=== PATIENT | female | born 1960 | race Caucasian/White ===

== ENCOUNTER 2022-05-06 12:38 | Emergency (ER) | payer OTHER ==
[2022-05-06 13:04] VITALS: BP 127/84; PULSE 70; RESP 16; TEMP 97.7; BMI 21.6
[2022-05-06] MEDS ORDERED: KETOROLAC TROMETHAMINE 30 MG/1 ML VIAL ONE ×2 (14:20→17:03)
[2022-05-06] MEDS ORDERED: SODIUM CHLORIDE 0.9% 500 ML INFUS.BAG IV ONE (16:55)
[2022-05-06 17:28] LABS: BASO % 0.9 % (0-2.0); EOS % 3.2 % (0-4.5); HEMOGLOBIN 11.2 GM/dL (10.7-15.3); LYMPH % 48.7 % (8-40); MCH 28.5 pg (25.7-33.7); MCHC 33.1 g/dl (32.0-36.0); MEAN CELL VOLUME 86.2 fl (80-96); MONO % 10.4 % (3.8-10.2); NEUT % 36.8 % (42.8-82.8); PLATELET COUNT 208 10^3/uL (134-434); RBC 3.94 M/mm3 (3.60-5.2); RDW 14.3 % (11.6-15.6); WHITE BLOOD COUNT 4.5 K/mm3 (4.0-10.0)
[2022-05-06 17:38] LABS: CALCIUM 8.8 mg/dL (8.5-10.1)
[2022-05-06 17:39] LABS: ALBUMIN 3.4 g/dl (3.4-5.0); BLOOD UREA NITROGEN 10.8 mg/dL (7-18)
[2022-05-06 17:42] LABS: CREATININE 0.7 mg/dL (0.55-1.3)
[2022-05-06 17:43] LABS: BILIRUBIN,TOTAL 0.4 mg/dL (0.2-1)
[2022-05-06 17:44] LABS: TOT PROT 7.2 g/dl (6.4-8.2)
[2022-05-06 17:53] LABS: EPI CELLS 3 /uL (0-25.1); HYALINE CASTS 0 /uL (0-3.1); URINE APPEARANCE CLEAR; URINE BACTERIA 79 /uL (0-1359); URINE BILIRUBIN NEGATIVE (NEGATIVE); URINE COLOR YELLOW; URINE GLUCOSE (UA) NEGATIVE (NEGATIVE); URINE KETONE NEGATIVE (NEGATIVE); URINE LEUK ESTERASE NEGATIVE (NEGATIVE); URINE NITRITE NEGATIVE (NEGATIVE); URINE PROTEIN NEGATIVE (NEGATIVE); URINE RBC 11 /uL (0-23.9); URINE UROBILINOGEN 0.2 mg/dL (0.2-1.0); URINE WBC 2 /uL (0-25.8)
[2022-05-06] MEDS ORDERED: KETOROLAC TROMETHAMINE 30 MG/1 ML VIAL IM SCH (18:00)
== END 2022-05-06 19:33 | disposition home or self-care (01) ==
LOC: JER 12:38
PROC: 3E023GC Introduction of Other Therapeutic Substance into Muscle, Percutaneous Approach (ICD-10-PCS; principal; 2022-05-06)
DX: B34.9 Viral infection, unspecified (principal); M79.10 Myalgia, unspecified site
CPT/HCPCS: 0241U-QW; 36415; 71046-TC-FY; 80053; 81003; 85025; 99284-25

== ENCOUNTER 2022-06-05 13:47 | Emergency (ER) | payer OTHER ==
[2022-06-05 14:37] VITALS: BP 130/64; PULSE 71; RESP 20; TEMP 99.5; BMI 23.5
[2022-06-05] MEDS ORDERED: ACETAMINOPHEN 500 MG TABLET (FP) PO ONE (15:17)
[2022-06-05] MEDS ORDERED: IBUPROFEN 600 MG TABLET (FP) PO ONE ×2 (15:57→16:01)
[2022-06-05] MEDS ORDERED: ACETAMINOPHEN 500 MG TABLET (FP) ONE (16:01)
== END 2022-06-05 16:16 | disposition home or self-care (01) ==
LOC: JER 13:47
DX: U07.1 COVID-19 (principal)
CPT/HCPCS: 0241U-QW; 99283-25

== ENCOUNTER 2024-03-23 16:55 | Emergency (ER) | payer OTHER ==
[2024-03-23 17:28] VITALS: RESP 20; TEMP 98.1; BMI 24.7
[2024-03-23] MEDS ORDERED: ALBUTEROL SO4 2.5/IPRATROPIUM 0.5 INH SOL 3 ML VIAL.NEB. NEB ONE ×2 (18:38→20:21)
[2024-03-23] MEDS ORDERED: ACETAMINOPHEN 500 MG TABLET (FP) ONE (18:38)
[2024-03-23] MEDS: ALBUTEROL SO4 2.5/IPRATROPIUM 0.5 INH SOL 3 ML VIAL.NEB. NEB ONE ×2 (18:46→20:24)
[2024-03-23] MEDS: ACETAMINOPHEN 500 MG TABLET (FP) PO ONE (18:46)
[2024-03-23] MEDS: SODIUM CHLORIDE FOR INHALATION 3 ML VIAL.NEB IH ONE (19:04)
[2024-03-23 19:46] VITALS: BP 135/76; PULSE 56
[2024-03-23] MEDS ORDERED: predniSONE 20 MG TABLET (UD) ONE (20:22)
[2024-03-23] MEDS: predniSONE 20 MG TABLET (UD) PO ONE (20:24)
== END 2024-03-23 20:45 | disposition home or self-care (01) ==
LOC: JERFT 16:55 → JER 16:55 → JERFT 20:45
PROC: 3E0F7GC Introduction of Other Therapeutic Substance into Respiratory Tract, Via Natural or Artificial Opening (ICD-10-PCS; principal; 2024-03-23)
PROC: 3E0F7GC Introduction of Other Therapeutic Substance into Respiratory Tract, Via Natural or Artificial Opening (ICD-10-PCS; 2024-03-23)
DX: J45.20 Mild intermittent asthma, uncomplicated (principal); J06.9 Acute upper respiratory infection, unspecified; R05.9 Cough, unspecified; R50.9 Fever, unspecified; R09.89 Other specified symptoms and signs involving the circulatory and respiratory systems; R07.9 Chest pain, unspecified; Z20.822 Contact with and (suspected) exposure to COVID-19
CPT/HCPCS: 0241U-QW; 71046-TC-FY; 93005; 93010; 99285-25